=== PATIENT | male | born 1985 | race American Indian/Alaskan Native ===

== ENCOUNTER 2021-06-29 16:50 | Emergency (ER) | payer MEDICAID ==
[2021-06-29 19:36] VITALS: BP 117/64
[2021-06-29 20:38] LABS: Basophils # (Auto) 0.1 K/mm3 (0.0-0.1); Basophils % (Auto) 1.2 % (0.0-1.8); Eosinophils % (Auto) 0.4 % (0.0-4.3); Hematocrit 39.2 % (35.5-45.6); Hemoglobin 12.4 gm/dl (11.8-15.2); Lymphocytes # (Auto) 2.1 K/mm3 (1.2-5.4); Lymphocytes % (Auto) 22.8 % (13.4-35.0); Mean Corpuscular HGB Conc 32 % (32-34); Mean Corpuscular Volume 83 fl (84-94); Monocytes # (Auto) 0.6 K/mm3 (0.0-0.8); Monocytes % (Auto) 6.9 % (0.0-7.3); Red Blood Count 4.75 M/mm3 (3.65-5.03); Red Cell Distribution Width 15.8 % (13.2-15.2)
[2021-06-29 20:39] LABS: Platelet Count 85 K/mm3 (140-440)
[2021-06-29 20:49] LABS: INR 0.96 (0.87-1.13)
[2021-06-29 20:50] LABS: Partial Thromboplastin Time 31.5 Sec. (24.2-36.6)
[2021-06-29 21:04] LABS: Albumin 4.6 g/dL (3.9-5); Calcium 9.2 mg/dL (8.4-10.2)
--- NOTE | 2021-06-29 21:28 | XRay Report ---
CHEST 2 VIEWS INDICATION / CLINICAL INFORMATION: Chest Pain. COMPARISON: None available. FINDINGS: SUPPORT DEVICES: A right internal jugular vein PermCath terminates over the right atrium. HEART / MEDIASTINUM: No significant abnormality. LUNGS / PLEURA: No significant pulmonary abnormality. No significant pleural effusion. No pneumothora x. ADDITIONAL FINDINGS: No significant additional findings. IMPRESSION: 1. No acute abnormality of the chest. Signer Name: Riki Monet MD Signed: 06/29/2021 9:24 PM Workstation Name: [id number]
[2021-06-29 21:57] LABS: Chol/HDL Ratio 4.54 %
== END 2021-06-29 20:00 | disposition left against medical advice (07) ==
LOC: ED 16:50
DX: R07.9 Chest pain, unspecified (principal); Z53.21 Procedure and treatment not carried out due to patient leaving prior to being seen by health care provider
CPT/HCPCS: 36415; 71046; 80053; 80061; 83880; 84484; 85025; 85610; 85730; 93005